=== PATIENT | female | born 1965 | race Caucasian/White ===

== ENCOUNTER → 2017-07-07 | Outpatient (CLI) | payer MEDICAID, MEDICARE ==
[2017-07-07 21:06] LABS: BILIRUBIN,URINE NEGATIVE (NEGATIVE); KETONES,URINE NEGATIVE (NEGATIVE); LEUKOCYTE ESTERASE ,URINE NEGATIVE (NEGATIVE); NITRITE,URINE NEGATIVE (NEGATIVE); PH,URINE 6.5 (5-9); PROTEIN,URINE NEGATIVE (NEGATIVE); UROBILINOGEN,URINE NORMAL (NORMAL)
[2017-07-07 21:14] LABS: SQUAMOUS EPITHELIAL CELL,UR 0-2 /HPF
== END ==
LOC: LABNPT 20:58
PROVIDERS: ATTEND Family Medicine
DX: N39.0 Urinary tract infection, site not specified (principal)
CPT/HCPCS: 81000

== ENCOUNTER → 2018-07-21 | Outpatient (CLI) | payer MEDICARE ==
--- NOTE | 2018-07-28 12:32 | Diagnostic Imaging Report ---
EXAMINATION: 2D and 3D bilateral screening mammography was performed with a Computer Aided Detection (CAD) system. 3D tomosynthesis was also performed and reviewed. INDICATION: Routine screening. COMPARISON: 12/11/2010 and 12/12/2009. FINDINGS: Both breasts are heterogeneously dense, limiting the sensitivity of mammography. The parenchymal pattern appears stable. No discrete mass or malignant appearing microcalcifications are seen. There are benign calcifications present. The axillae are unremarkable. IMPRESSION: No mammographic features suspicious for malignancy are identified. ACR BI-RADS Category 2: Benign findings. Result letter will be mailed to the patient. Note: At least 10% of breast cancer is not imaged by mammography. Dictated by: Dictated on workstation # [id number]
== END ==
LOC: RAD 14:31
PROVIDERS: ATTEND Nurse Practitioner Community Health
DX: Z12.31 Encounter for screening mammogram for malignant neoplasm of breast (principal)
CPT/HCPCS: 77067

== ENCOUNTER → 2020-06-29 | Outpatient (CLI) | payer MEDICARE, MEDICAID ==
--- NOTE | 2020-06-30 09:34 | Diagnostic Imaging Report ---
EXAMINATION: Digital mammogram INDICATION: Bilateral screening This study was compared to the prior exams of 07/21/2018/ At this time there are no current complaints. The current study was also evaluated with a Computer Aided Detection (CAD) system. The fibroglandular tissue in both breasts is heterogeneously dense. This does limit the sensitivity of this exam. On the craniocaudad view of the right breast deep in the midportion of the breast approximately 9 cm from the nipple there is a 7-8 mm asymmetry. There is no corresponding abnormality seen on the MLO view. However the MLO view of the right breast is less than optimal. I would recommend that a compression view of this area be obtained in the CC projection as well as a repeat MLO view and a true lateral view. If this density persists, then ultrasound would be recommended for further study. The left breast is unchanged. IMPRESSION: Additional mammographic views of the right breast would be recommended for further study. Ultrasound may also be necessary. ACR category 0 ACR BI-RADS Category 0: Incomplete. (Needs additional imaging evaluation). Result letter will be mailed to the patient. Note: At least 10% of breast cancer is not imaged by mammography. Dictated by: Dictated on workstation # [id number]
== END ==
LOC: RAD 14:45
PROVIDERS: ATTEND Nurse Practitioner Community Health
DX: Z12.31 Encounter for screening mammogram for malignant neoplasm of breast (principal)
CPT/HCPCS: 77063; 77067

== ENCOUNTER → 2020-07-27 | Outpatient (CLI) | payer MEDICARE, MEDICAID ==
--- NOTE | 2020-07-27 13:31 | Diagnostic Imaging Report ---
INDICATION: Right breast density. Patient presents for additional views. Correlation is made with the recent screening study from 06/29/2020. Unilateral right 2-D and 3-D diagnostic mammography was performed. This included spot compression CC, rolled CC, 90 degree lateral as well as a repeat right MLO view. Additional views fail to demonstrate discrete mass. Area of density in the medial posterior right breast most likely represents superimposed tissue. No suspicious microcalcifications are seen. IMPRESSION: BI-RADS Category 1 Additional views fail to demonstrate a discrete mass. The patient may return to routine annual screening mammography. ACR BI-RADS Category 1: Negative. Result letter will be mailed to the patient. Note: At least 10% of breast cancer is not imaged by mammography. Dictated by: Dictated on workstation # [id number]
== END ==
LOC: RAD 13:15
PROVIDERS: ATTEND Nurse Practitioner Community Health
DX: R92.2 Inconclusive mammogram (principal)
CPT/HCPCS: 77065; G0279

== ENCOUNTER 2021-10-24 11:36 | Emergency (ER) | payer MEDICARE, MEDICAID ==
[~2021-10-24] VITALS: Ht 167 cm; Wt 68.0 kg
--- NOTE | 2021-10-24 11:52 | ED Fall/Injury ---
General Chief Complaint: Trauma-Non Activation Stated Complaint: FALL Source: patient, EMS, retirement records History of Present Illness Date Seen by Provider: Oct 24, 2021 Time Seen by Provider: 11:42 Initial Comments This is a 56-year-old female who presented to the ER via [facility] for complaints of fall at [facility]. EMS reports that patient was standing when she fell over, hit her head on the floor, lost consciousness for approximately 1 minute and awoke vomiting 1x. Does have history of [place]'s disease. Nursing facility states patient awoke and was at baseline mentation. She is currently complaining of headache and neck pain. No use of anticoagulants noted on DEC. Allergies and Home Medications Allergies Coded Allergies: Penicillins (Verified Allergy, Unknown, 10/24/21) bupropion (Verified Allergy, Unknown, 10/24/21) latex (Verified Allergy, Unknown, 10/24/21) Uncoded Allergies: PCN (Allergy, Unknown, 10/24/21) Patient Home Medication List Home Medication List Reviewed: Yes Review of Systems Review of Systems Constitutional: no symptoms reported Eyes: No Symptoms Reported Ears, Nose, Mouth, Throat: no symptoms reported Respiratory: no symptoms reported Cardiovascular: no symptoms reported Gastrointestinal: see HPI Genitourinary: no symptoms reported Musculoskeletal: see HPI Skin: no symptoms reported Psychiatric/Neurological: See HPI Past Akomztf-Oubopd-Zlkkks Hx Patient Social History Tobacco Use?: No Substance use?: No Alcohol Use?: No Past Medical History Surgery/Hospitalization HX: pmh: huntingtons disease, dizziness, asthma, bipolar disorder, htn Physical Exam Vital Signs Vital Signs - First Documented Capillary Refill : Height, Weight, BMI Height: '" Weight: lbs. oz. kg; BMI Method: General Appearance: WD/WN, no apparent distress HEENT: PERRL/EOMI, normal ENT inspection (dry MM), TMs normal Cardiovascular: regular rate, rhythm, no edema, no gallop, no murmur Respiratory: lungs clear, normal breath sounds, no respiratory distress, no accessory muscle use Peripheral Pulses: 2+ Radial Pulses (R), 2+ Radial Pulses (L) Gastrointestinal: normal bowel sounds, non tender, soft Pelvic: other (pelvis stable ) Extremities: normal range of motion, non-tender Neurologic/Psychiatric: no motor/sensory deficits, alert, oriented x 3 Skin: normal color, warm/dry Andrew Coma Score Best Eye Response: (4) Open Spontaneously Best Verbal Response: (5) Oriented Best Motor Response: (6) Obeys Commands Andrew Total: 15 Progress/Results/Core Measures Results/Orders Lab Results Laboratory Tests Test 10/24/21 11:52 Range/Units White Blood Count 15.6 H 4.3-11.0 10^3/uL Red Blood Count 4.74 3.80-5.11 10^6/uL Hemoglobin 14.1 11.5-16.0 g/dL Hematocrit 43 35-52 % Mean Corpuscular Volume 91 80-99 fL Mean Corpuscular Hemoglobin 30 25-34 pg Mean Corpuscular Hemoglobin Concent 33 32-36 g/dL Red Cell Distribution Width 13.1 10.0-14.5 % Platelet Count 580 H 130-400 10^3/uL Mean Platelet Volume 10.1 9.0-12.2 fL Immature Granulocyte % (Auto) 1 % Neutrophils (%) (Auto) 75 42-75 % Lymphocytes (%) (Auto) 11 L 12-44 % Monocytes (%) (Auto) 11 0-12 % Eosinophils (%) (Auto) 2 0-10 % Basophils (%) (Auto) 1 0-10 % Neutrophils # (Auto) 11.6 H 1.8-7.8 10^3/uL Lymphocytes # (Auto) 1.8 1.0-4.0 10^3/uL Monocytes # (Auto) 1.6 H 0.0-1.0 10^3/uL Eosinophils # (Auto) 0.4 H 0.0-0.3 10^3/uL Basophils # (Auto) 0.1 0.0-0.1 10^3/uL Immature Granulocyte # (Auto) 0.1 0.0-0.1 10^3/uL Neutrophils % (Manual) 76 % Lymphocytes % (Manual) 10 % Monocytes % (Manual) 11 % Eosinophils % (Manual) 3 % Basophils % (Manual) 0 % Band Neutrophils 0 % Blood Morphology Comment NORMAL Sodium Level 134 L 135-145 MMOL/L Potassium Level 3.9 3.6-5.0 MMOL/L Chloride Level 105 98-107 MMOL/L Carbon Dioxide Level 23 21-32 MMOL/L Anion Gap 6 5-14 MMOL/L Blood Urea Nitrogen 28 H 7-18 MG/DL Creatinine 1.67 H 0.60-1.30 MG/DL Estimat Glomerular Filtration Rate 32 BUN/Creatinine Ratio 17 Glucose Level 95 70-105 MG/DL Calcium Level 10.4 H 8.5-10.1 MG/DL Corrected Calcium 10.5 H 8.5-10.1 MG/DL Total Bilirubin 1.0 0.1-1.0 MG/DL Aspartate Amino Transf (AST/SGOT) 53 H 5-34 U/L Alanine Aminotransferase (ALT/SGPT) 89 H 0-55 U/L Alkaline Phosphatase 182 H 40-136 U/L Total Protein 6.9 6.4-8.2 GM/DL Albumin 3.9 3.2-4.5 GM/DL My Orders Orders - JESSICA COUCH APRN Cbc With Automated Diff (10/24/21 11:46) Comprehensive Metabolic Panel (10/24/21 11:46) Ct Head/Cervical Spine Wo (10/24/21 11:46) Chest 1 View, Ap/Pa Only (10/24/21 11:46) Manual Differential (10/24/21 11:52) Pelvis/Nya Hips 5> Views (10/24/21 11:46) Acetaminophen Tablet (Tylenol Tablet) (10/24/21 12:30) Meclizine Tablet (Antivert Tablet) (10/24/21 12:30) Ondansetron Injection (Zofran Injectio (10/24/21 12:45) Ondansetron Injection (Zofran Injectio (10/24/21 12:35) Ns Iv 1000 Ml (Sodium Chloride 0.9%) (10/24/21 12:45) Ns Iv 1000 Ml (Sodium Chloride 0.9%) (10/24/21 14:15) Medications Given in ED Vital Signs/I&O 10/24/21 10/24/21 10/24/21 11:44 11:44 17:00 Temp 35.9 35.9 35.9 Pulse 89 89 79 Resp 20 20 20 B/P (MAP) 95/58 (70) 95/58 (70) 92/68 Pulse Ox 98 98 98 Progress Progress Note : Progress Note Patient Examined and in no acute distress. Has history of significant nausea and vomiting for which she takes meclizine. Will obtain basic labs, imaging of head neck, chest, and pelvis. Her mucous membranes are extremely dry and she is noted to have low BP. Orders placed for IVF. Labs reviewed, slight elevation in WBC. CT head, cervical spine negative for acute pathology. C-collar removed at 1239. Attempted to give Tylenol and Meclizine, however patient became nauseated with oral pills and had small amount of emesis. Orders placed for Zofran 4 mg IV push. Was feeling much improved. Given 2 liters NS. Discharge back to retirement. Diagnostic Imaging Diagonstic Imaging: CT Comments [facility], [place] NAME: BAO BAILEY MED REC#: [id number] PT STATUS: REG ER : 1965 PHYSICIAN: JESSICA COUCH METAL INSPECTOR ADMIT DATE: 10/24/21/ER Draft Date of Exam:10/24/21 CT HEAD/CERVICAL SPINE WO EXAMINATION: CT head and CT cervical spine without contrast. TECHNIQUE: Multiple contiguous axial images were obtained through the brain and cervical spine without the use of intravenous contrast. Sagittal and coronal reformations through the cervical spine were then performed. All CT scans use one or more of the following dose optimizing techniques: automated exposure control, MA and/or KvP adjustment based on patient size and exam type or iterative reconstruction. HISTORY: Same level fall, LOC, vomiting COMPARISON: None available. FINDINGS: HEAD: Mild diffuse cerebral volume loss with proportional enlargement of the ventricles and sulci. No abnormal attenuation of brain parenchyma is present. No acute intracranial hemorrhage or abnormal extra-axial fluid collections are present. No hyperdense vessel. The calvarium is intact. The mastoid air cells are clear. The visualized paranasal sinuses are clear. The orbits are normal. C-SPINE: Vertebral body height and alignment are preserved. No acute fracture, dislocation, or destructive osseous process. No significant facet hypertrophy. Mild multilevel cervical spondylosis. The paraspinous soft tissues are normal. The visualized thyroid gland is normal. The visualized lung apices are normal. IMPRESSION: 1. No acute intracranial abnormality. Mild volume loss. 2. No cervical spine fracture. Dictated on workstation # [id number] Dict: 10/24/21 1214 Trans: 10/24/21 1218 [id number] Interpreted by: GIULIA DAUGHERTY DO Electronically signed by: Sonia [facility] [place] NAME: BAO BAILEY [facility] REC#: [id number] PT STATUS: REG ER : 1965 PHYSICIAN: JESSICA COUCH APRN ADMIT DATE: 10/24/21/ER Draft Date of Exam:10/24/21 CHEST 1 VIEW, AP/PA ONLY EXAMINATION: Chest, one view. HISTORY: Chest pain after fall. COMPARISON: None available. FINDINGS: Heart size and pulmonary vasculature are normal. The lungs are clear without consolidation, pleural effusion, or pneumothorax. Degenerative changes of the thoracic spine. Osseous structures are otherwise intact. IMPRESSION: 1. No acute radiographic abnormality in the chest. Dictated on workstation # [id number] Dict: 10/24/21 1229 Trans: 10/24/21 1235 [id number] Interpreted by: GIULIA DAUGHERTY DO Electronically signed by: Diagonstic Imaging: Xray Comments [facility] [place] NAME: BAO BAILEY [facility] REC#: [id number] PT STATUS: REG ER : 1965 PHYSICIAN: JESSICA COUCH APRN ADMIT DATE: 10/24/21/ER Draft Date of Exam:10/24/21 PELVIS/NYA HIPS 5> VIEWS EXAM: Pelvis and hip radiographs. EXAM DATE: 10/24/2021. COMPARISON: None. HISTORY: Fall with hip pain. TECHNIQUE: Single view of the pelvis with two views of both hips. FINDINGS: There is no acute fracture, dislocation, or destructive osseous process. The joint spaces are normal. The soft tissues are normal. IMPRESSION: No acute osseous abnormality of the pelvis or hips. Dictated on workstation # [id number] Dict: 10/24/21 1230 Trans: 10/24/21 1232 [id number] Interpreted by: GIULIA DAUGHERTY DO Electronically signed by: Departure Impression Primary Impression: Fall on same level Additional Impressions: Concussion Dehydration Disposition: 03 XFER SNF Condition: Stable Departure-Patient Inst. Decision time for Depature: 13:04 Referrals: [facility] (PCP/Family) Primary Care Physician Patient Instructions: Concussion, Adult (DC), Preventing Falls in the Older Adult, Dehydration, Adult (DC), Head Injury Observation (DC), Dehydration, Adult ED Add. Discharge Instructions: Plan: 1. Encourage plenty of fluids to stay hydrated. 2. Monitor closely with neuro checks for the next 12 hours. 3. See head injury observation handout. 4. Hold BP medication if SBP less than 120. Follow up with PCP in 3-5 days. 5. Return to ER if she develops any new, concerning, or worsening symptoms such as persistent vomiting, changes in mentation, difference in pupil size, w eakness, etc. All discharge instructions reviewed with patient and/or family. Voiced understanding. JESSICA COUCH METAL INSPECTOR Oct 24, 2021 11:52
[2021-10-24 11:58] LABS: BASOPHILS # (AUTO) 0.1 10^3/uL (0.0-0.1); BASOPHILS % (AUTO) 1 % (0-10); EOSINOPHILS # (AUTO) 0.4 10^3/uL (0.0-0.3); EOSINOPHILS % (AUTO) 2 % (0-10); HEMATOCRIT 43 % (35-52); HEMOGLOBIN 14.1 g/dL (11.5-16.0); LYMPHOCYTES # (AUTO) 1.8 10^3/uL (1.0-4.0); LYMPHOCYTES % (AUTO) 11 % (12-44); MEAN CORPUSCULAR HEMOGLOBIN 30 pg (25-34); MEAN CORPUSCULAR HGB CONC 33 g/dL (32-36); MEAN CORPUSCULAR VOLUME 91 fL (80-99); MEAN PLATELET VOLUME 10.1 fL (9.0-12.2); MONOCYTES # (AUTO) 1.6 10^3/uL (0.0-1.0); MONOCYTES % (AUTO) 11 % (0-12); NEUTROPHILS # (AUTO) 11.6 10^3/uL (1.8-7.8); NEUTROPHILS % (AUTO) 75 % (42-75); PLATELET COUNT 580 10^3/uL (130-400); WHITE BLOOD COUNT 15.6 10^3/uL (4.3-11.0)
[2021-10-24 12:17] LABS: ALBUMIN 3.9 GM/DL (3.2-4.5); POTASSIUM 3.9 MMOL/L (3.6-5.0)
[2021-10-24 12:19] LABS: CALCIUM 10.4 MG/DL (8.5-10.1)
--- NOTE | 2021-10-24 12:19 | Diagnostic Imaging Report ---
EXAMINATION: CT head and CT cervical spine without contrast. TECHNIQUE: Multiple contiguous axial images were obtained through the brain and cervical spine without the use of intravenous contrast. Sagittal and coronal reformations through the cervical spine were then performed. All CT scans use one or more of the following dose optimizing techniques: automated exposure control, MA and/or KvP adjustment based on patient size and exam type or iterative reconstruction. HISTORY: Same level fall, LOC, vomiting COMPARISON: None available. FINDINGS: HEAD: Mild diffuse cerebral volume loss with proportional enlargement of the ventricles and sulci. No abnormal attenuation of brain parenchyma is present. No acute intracranial hemorrhage or abnormal extra-axial fluid collections are present. No hyperdense vessel. The calvarium is intact. The mastoid air cells are clear. The visualized paranasal sinuses are clear. The orbits are normal. C-SPINE: Vertebral body height and alignment are preserved. No acute fracture, dislocation, or destructive osseous process. No significant facet hypertrophy. Mild multilevel cervical spondylosis. The paraspinous soft tissues are normal. The visualized thyroid gland is normal. The visualized lung apices are normal. IMPRESSION: 1. No acute intracranial abnormality. Mild volume loss. 2. No cervical spine fracture. Dictated by: Dictated on workstation # [id number]
[2021-10-24 12:20] LABS: TOTAL PROTEIN 6.9 GM/DL (6.4-8.2)
[2021-10-24 12:24] LABS: CREATININE SERUM 1.67 MG/DL (0.60-1.30)
[2021-10-24 12:28] LABS: BAND NEUTROPHILS 0 %; BASOPHILS % (MANUAL) 0 %; EOSINOPHILS % (MANUAL) 3 %; LYMPHOCYTES % (MANUAL) 10 %; MONOCYTES % (MANUAL) 11 %; NEUTROPHILS % (MANUAL) 76 %
[2021-10-24 12:29] LABS: RBC MORPH NORMAL
[2021-10-24] MEDS: ACETAMINOPHEN 500 MG TAB (TYLENOL) PO ONE ×2 (12:29→12:38)
[2021-10-24] MEDS: MECLIZINE 25 MG (ANTIVERT) TAB PO ONE ×2 (12:29→12:38)
--- NOTE | 2021-10-24 12:31 | Diagnostic Imaging Report ---
EXAMINATION: Chest, one view. HISTORY: Chest pain after fall. COMPARISON: None available. FINDINGS: Heart size and pulmonary vasculature are normal. The lungs are clear without consolidation, pleural effusion, or pneumothorax. Degenerative changes of the thoracic spine. Osseous structures are otherwise intact. IMPRESSION: 1. No acute radiographic abnormality in the chest. Dictated by: Dictated on workstation # [id number]
--- NOTE | 2021-10-24 12:33 | Diagnostic Imaging Report ---
EXAM: Pelvis and hip radiographs. EXAM DATE: 10/24/2021. COMPARISON: None. HISTORY: Fall with hip pain. TECHNIQUE: Single view of the pelvis with two views of both hips. FINDINGS: There is no acute fracture, dislocation, or destructive osseous process. The joint spaces are normal. The soft tissues are normal. IMPRESSION: No acute osseous abnormality of the pelvis or hips. Dictated by: Dictated on workstation # [id number]
[2021-10-24] MEDS ORDERED: ONDANSETRON 4 MG/2 ML (SDV) Z0FRAN ONE (12:35)
[2021-10-24] MEDS ORDERED: ONDANSETRON 4 MG/2 ML (SDV) Z0FRAN IVP ONE (12:45)
[2021-10-24] MEDS ORDERED: NS IV 1000 ML 1,000 ML IV ONE ×2 (12:45→14:15)
[2021-10-24 17:00] VITALS: BP 92/68
== END 2021-10-24 17:00 ==
LOC: EDUNIT# 11:36 → ER 11:39
DX: S06.0X1A Concussion with loss of consciousness of 30 minutes or less, initial encounter (principal); E86.0 Dehydration; I10 Essential (primary) hypertension; F31.9 Bipolar disorder, unspecified; G10 Huntington's disease; J45.909 Unspecified asthma, uncomplicated; W18.30XA Fall on same level, unspecified, initial encounter; Y92.129 Unspecified place in nursing home as the place of occurrence of the external cause
CPT/HCPCS: 36415; 70450; 71045; 72125; 73523; 80053; 85007; 85027

== ENCOUNTER 2021-11-11 17:59 | Emergency (ER) | payer MEDICARE, MEDICAID ==
--- NOTE | 2021-11-11 18:22 | ED Fall/Injury ---
General Chief Complaint: Trauma-Non Activation Stated Complaint: FALL Source: patient, EMS Exam Limitations: no limitations History of Present Illness Date Seen by Provider: Nov 11, 2021 Time Seen by Provider: 18:03 Initial Comments Here with report of fall from a chair. This was unwitnessed. No reported loss of consciousness. Patient complains of left forearm pain and pain to the top of her head. Denies neck, chest or abdominal pain. Denies lower extremity pain. Frequently falls out of her chair. She is a resident of the long-term care facility. She did have COVID in early September. Denies other symptoms. Occurred: this evening Severity: mild Injuries/Pain Location: head, upper extremity Context: lost balance Loss of Consciousness: unsure Associated Symptoms (Fall): No Chest Pain, No Confusion, No Headache, No Nausea/Vomiting, No Neck Pain, No Shortness of Air, No Trouble Walking Allergies and Home Medications Allergies Coded Allergies: Penicillins (Verified Allergy, Unknown, 10/24/21) bupropion (Verified Allergy, Unknown, 10/24/21) latex (Verified Allergy, Unknown, 10/24/21) Uncoded Allergies: PCN (Allergy, Unknown, 10/24/21) Patient Home Medication List Home Medication List Reviewed: Yes Review of Systems Review of Systems Constitutional: No chills, No fever Eyes: Denies Blurred Vision, Denies Pain Ears, Nose, Mouth, Throat: no symptoms reported Respiratory: No cough Gastrointestinal: No nausea, No vomiting Genitourinary: no symptoms reported Musculoskeletal: joint pain, muscle pain Skin: change in color (Old bruise to the top of the head); No lesions, No rash Psychiatric/Neurological: Denies Headache, Denies Numbness Past Yselfux-Gwuojn-Aqnbss Hx Patient Social History Tobacco Use?: No Substance use?: No Alcohol Use?: No Pt feels they are or have been: No Immunizations Up To Date Influenza Vaccine Up-to-Date: Yes; Up-to-Date First/Initial COVID19 Vaccinat: 06/2021 Second COVID19 Vaccination Mesfin: 06/2021 Past Medical History Surgery/Hospitalization HX: pmh: huntingtons disease, dizziness, asthma, bipolar disorder, htn Family Medical History Reviewed Nursing Family Hx Physical Exam Vital Signs Vital Signs - First Documented 11/11/21 18:00 Temp 37.0 Pulse 77 Resp 17 B/P (MAP) 109/85 (93) Pulse Ox 100 O2 Delivery Room Air Capillary Refill : Height, Weight, BMI Height: '" Weight: lbs. oz. kg; 24.00 BMI Method: General Appearance: WD/WN, no apparent distress HEENT: PERRL/EOMI, TMs normal, other (No obvious new injury or deformity to the head) Neck: non-tender, full range of motion, supple, normal inspection Cardiovascular: regular rate, rhythm, no murmur Respiratory: lungs clear, normal breath sounds Gastrointestinal: non tender, soft Extremities: normal range of motion, other (Mild tenderness left forearm with normal range of motion) Neurologic/Psychiatric: alert, normal mood/affect Skin: warm/dry, ecchymosis (Question mild old bruise to the top of head) Reading Coma Score Best Eye Response: (4) Open Spontaneously Best Verbal Response: (5) Oriented Best Motor Response: (6) Obeys Commands Progress/Results/Core Measures Results/Orders My Orders Orders - EAMON LINDSAY MD Ct Head Wo (11/11/21 18:08) Forearm, Left, 2 Views (11/11/21 18:08) Vital Signs/I&O 11/11/21 18:00 Temp 37.0 Pulse 77 Resp 17 B/P (MAP) 109/85 (93) Pulse Ox 100 O2 Delivery Room Air Progress Progress Note : Progress Note Seen and evaluated. CT head and x-ray left forearm ordered. Monitor patient. 1930: No acute findings on radiology. Discharged back to residential with return precautions. Patient verbalized understanding of instructions and agreement with plan. Diagnostic Imaging Diagonstic Imaging: CT Plain Films/CT/US/NM/MRI: head Comments [facility], [place] NAME: BAO BAILEY [facility] REC#: [id number] PT STATUS: REG ER : 1965 PHYSICIAN: EAMON LINDSAY MD ADMIT DATE: 11/11/21/ER Draft Date of Exam:11/11/21 CT HEAD WO PROCEDURE: CT head without contrast. TECHNIQUE: Multiple contiguous axial images were obtained through the brain without the use of intravenous contrast. Auto Exposure Controls were utilized during the CT exam to meet ALARA standards for radiation dose reduction. INDICATION: Head injury, fall, pain. COMPARISON: 10/24/2021. FINDINGS: Mild atrophy. No intracranial hemorrhage. No intracranial mass, mass effect, midline shift, herniation, hydrocephalus or extra-axial fluid collection. Chronic lacunar infarction within the right cerebellar hemisphere. No CT evidence of an acute ischemic infarction. The orbits are unremarkable. The paranasal sinuses are clear. The calvarium and extracalvarial soft tissues are unremarkable. IMPRESSION: Stable appearing examination without acute intracranial abnormality. Dictated on workstation # [id number] Dict: 11/11/211852 Trans: 11/11/211899 PJ [id number] Interpreted by: SUSAN ROSA MD Electronically signed by: Maya Imaging: Xray Plain Films/CT/US/NM/MRI: forearm Comments [facility] [place] [place] NAME: BAO BAILEY [facility] REC#: [id number] PT STATUS: REG ER : 1965 PHYSICIAN: EAMON LINDSAY MD ADMIT DATE: 11/11/21/ER Signed Date of Exam:11/11/21 FOREARM, LEFT, 2 VIEWS INDICATION: Foreign pain. COMPARISON: None available. TECHNIQUE: Three radiographs of the left forearm dated November 11, 2021. FINDINGS: No acute fracture or dislocation. No suspicious radiopaque foreign body. No widening of the scapholunate interval. IMPRESSION: No acute fracture. Dictated by: Dictated on workstation # [id number] Dict: 11/11/211899 Trans: 11/11/211926 PJE [id number] Interpreted by: SUSAN ROSA MD Electronically signed by: SUSAN ROSA MD 11/11/211926 Departure Impression Primary Impression: Minor head injury Qualified Codes: S09.90XA - Unspecified injury of head, initial encounter Additional Impressions: Contusion of forearm, left Qualified Codes: S50.12XA - Contusion of left forearm, initial encounter Frequent falls Disposition: 01 HOME, SELF-CARE Condition: Improved Departure-Patient Inst. Decision time for Depature: 19:33 Referrals: [facility] (PCP/Family) Primary Care Physician Patient Instructions: Minor Head Injury (DC), Contusion (DC) Add. Discharge Instructions: All discharge instructions reviewed with patient and/or family. Voiced understanding. Protect from falls. Continue home medications as previously prescribed. Follow-up with your doctor in a few days for recheck as needed. Return for wor se pain, weakness, vision problems, vomiting or other concerns as needed. EAMON LINDSAY MD Nov 11, 2021 18:22
--- NOTE | 2021-11-11 19:00 | Diagnostic Imaging Report ---
PROCEDURE: CT head without contrast. TECHNIQUE: Multiple contiguous axial images were obtained through the brain without the use of intravenous contrast. Auto Exposure Controls were utilized during the CT exam to meet ALARA standards for radiation dose reduction. INDICATION: Head injury, fall, pain. COMPARISON: 10/24/2021. FINDINGS: Mild atrophy. No intracranial hemorrhage. No intracranial mass, mass effect, midline shift, herniation, hydrocephalus or extra-axial fluid collection. Chronic lacunar infarction within the right cerebellar hemisphere. No CT evidence of an acute ischemic infarction. The orbits are unremarkable. The paranasal sinuses are clear. The calvarium and extracalvarial soft tissues are unremarkable. IMPRESSION: Stable appearing examination without acute intracranial abnormality. Dictated by: Dictated on workstation # [id number]
--- NOTE | 2021-11-11 19:04 | Diagnostic Imaging Report ---
INDICATION: Foreign pain. COMPARISON: None available. TECHNIQUE: Three radiographs of the left forearm dated November 11, 2021. FINDINGS: No acute fracture or dislocation. No suspicious radiopaque foreign body. No widening of the scapholunate interval. IMPRESSION: No acute fracture. Dictated by: Dictated on workstation # [id number]
[2021-11-11 20:00] VITALS: BP 107/76
== END 2021-11-11 20:48 ==
LOC: EDUNIT# 17:59 → ER 18:00
DX: S09.90XA Unspecified injury of head, initial encounter (principal); S50.12XA Contusion of left forearm, initial encounter; Z91.81 History of falling; G10 Huntington's disease; J45.909 Unspecified asthma, uncomplicated; F31.9 Bipolar disorder, unspecified; I10 Essential (primary) hypertension; Z86.16 Personal history of COVID-19; W07.XXXA Fall from chair, initial encounter; Y92.129 Unspecified place in nursing home as the place of occurrence of the external cause
CPT/HCPCS: 70450; 73090